=== PATIENT | female | born 1950 | race Caucasian/White ===

== ENCOUNTER 2019-08-12 20:19 | Inpatient (IN) ==
[2019-08-12] MEDS ORDERED: IPRATROPIUM/ALBUTEROL 3 ML AMPUL.NEB NEB ONE ×2 (20:25→20:40)
--- NOTE | 2019-08-12 20:41 | Emergency Department Note ---
SOB HPI - General Chief Complaint: Shortness of Breath/Dyspnea Stated Complaint: Short of breath x 2 hours Time Seen by Provider: 08/12/19 20:30 Source: patient Mode of arrival: ambulatory - History of Present Illness Presents to ER with worsening shortness of breath; has recently been seen for similar. Has been using inhalers. Additional history has been misplaced and not recalled. Has been on prednisone recently I believe. REVIEW OF SYSTEMS: Additional history - lost, and not recalled. As best I can remember there were no major other symptoms including chest pain or palpitations, Nausea or vomiting or diarrhea or constipation, dysuria, back pain, swelling, etc. - Related Data Home Medications Medication Instructions Recorded Confirmed Aspirin [Lo-Dose Aspirin EC] 81 mg PO Q48 08/12/19 08/13/19 Ibuprofen [Advil] 200 mg PO ONCE PRN 08/12/19 08/13/19 Losartan [Cozaar] 100 mg PO DAILY 08/12/19 08/13/19 Raloxifene HCl [Evista] 60 mg PO DAILY 08/12/19 08/13/19 Tiotropium [place] [Spiriva] 18 mcg INH DAILY 08/12/19 08/13/19 albuterol sulfate 90 mcg/actuation See Rx Instructions INHALATION 08/18/19 08/18/19 aerosol inhaler .COMPLEX PRN cholecalciferol (vitamin D3) 400 400 unit PO QDAY 08/18/19 unit capsule multivitamin See Rx Instructions PO QDAY tab 08/18/19 08/18/19 Previous Rx's Medication Instructions Recorded Inhaler,Assist Device,Med Mask 1 each MC 3-4XD #1 spacer 07/25/19 [Aerochamber Plus Flow-Vu] guaiFENesin/CODEINE [Robitussin AC] 10 ml PO Q4HP PRN #120 ml 08/12/19 Levofloxacin [Levaquin] 750 mg PO DAILY #5 tab 08/14/19 predniSONE [Deltasone] 40 mg PO DAILY #10 tab 08/14/19 Allergies Allergy/AdvReac Type Severity Reaction Status Date / Time No Known Drug Allergies Allergy Unverified 07/25/19 20:27 Past Medical History - Past Medical History REPLACED BY [facility] Narrative: Medical History (Last Updated 08/18/19 @ 13:30 by Fabiola Templeton) Ankle fracture, left (Chronic) Ankle fracture, right (Chronic) Metatarsal stress fracture (Chronic) Dyspnea (Chronic) Cough (Chronic) Osteopenia (Chronic) Arthritis (Chronic) Hip pain, bilateral (Chronic) Lumbar radiculopathy, right (Chronic) intermediate designer (current) use of aspirin (Chronic) COPD (chronic obstructive pulmonary disease) (Chronic) Acute exacerbation of chronic obstructive airways disease (Chronic) Hypertension, essential (Chronic) Past Surgical History (Last Updated 08/18/19 @ 13:30 by Fabiola Templeton) History of D&C (Chronic) History of bunionectomy (Chronic ~2001) History of oral surgery (Chronic ~2008) History of tonsillectomy and adenoidectomy (Chronic) History of tubal ligation (Chronic) Family History (Last Updated 08/18/19 @ 13:16 by Fabiola Templeton) Mother Smoker Regular alcohol consumption Esophageal cancer Heart disease Father Smoker Lung cancer Brother Gout Daughter Severe allergy Grandfather Lung cancer Family/Other Lung cancer Breast cancer Unknown Asthma Heart disease Medical history: Reports: COPD Surgical history ED: Reports: non-contributory - Social History smoking status: Former smoker Alcohol use: Reports: Rarely Drug use: Reports: none Physical Exam Below exam is best I am able to document, some based on assumptions as documentation (handwritten) has been misplaced and this is being completed several days later. Limitations: no limitations General appearance: alert, in no apparent distress Head: atraumatic, normocephalic Eye: Present: EOMI ENT: Present: normal oropharynx, mucous membranes moist Neck: Present: trachea midline. Absent: lymphadenopathy, thyromegaly Respiratory: Present: wheezes (polyphonic walker expiratory in muyltiple lung syed.), other (requiring oxygen to maintain). Absent: stridor, accessory muscle use, prolonged expiratory phase Cardiovascular: Present: regular rate, normal rhythm. Absent: systolic murmur, diastolic murmur Abdominal: Present: soft ( ). Absent: distention, tenderness, guarding, rebound, rigidity, organomegaly, mass Extremities: Absent: pedal edema, pretibial edema, calf tenderness Psychiatric: Present: normal affect, normal mood Skin: Present: warm, dry Course Vital Signs Temperature 97.3 F 08/12/19 20:20 Pulse Rate 119 H 08/12/19 20:20 Respiratory Rate 28 H 08/12/19 20:20 Blood Pressure 208/115 08/12/19 20:20 Pulse Oximetry (%) 85 L 08/12/19 20:20 Temperature 97.5 F 08/14/19 10:00 Pulse Rate 110 H 08/14/19 10:00 Respiratory Rate 18 08/14/19 10:00 Blood Pressure 158/73 08/14/19 10:00 Pulse Oximetry (%) 93 08/14/19 10:00 Shortness of Breath/Dyspnea - MDM Narrative Medical decision making narrative: COPD exacerbation type of presentation, failing outpt therapy. Will give additional duoneb. 9:05 PM - after second DuoNeb she still is quite wheezy and multiple lung syed. We will go with 10 mg heart neb. After heart nebulization still wheezy significantly and required oxygen to maintain. For this reason I spoke with hospitalist, Dr. Zapien, who kindly accepts this patient's care. - Lab Data Lab results reviewed: Yes I reviewed the patient's lab results. Result diagrams: 08/14/19 03:56 08/14/19 03:56 Lab Results 08/12/19 08/12/19 08/12/19 Range/Units 20:53 20:54 20:54 WBC 8.7 (4.5-11.0) K/mcL RBC 4.31 (4.00-5.20) M/mcL Hgb 14.2 (12.0-15.0) g/dL Hct 42.7 (36.0-48.0) % MCV 99.0 (80.0-100.0) fL MCH 33.0 (26.0-34.0) pg MCHC 33.3 (31.0-36.0) g/dL RDW 12.9 (11.5-14.5) % Plt Count 304 (140-440) K/mcL MPV 7.6 (7.4-10.4) fL Gran % 49.8 (38.0-78.0) % Lymph % (Auto) 24.1 (15.5-49.0) % [place] % (Auto) 12.2 H (1.0-12.0) % Eos % (Auto) 12.9 H (0.0-7.0) % Baso % (Auto) 1.0 (0.0-2.0) % Gran # 4.3 (1.8-8.0) K/mcL Lymph # (Auto) 2.1 (1.5-4.8) K/mcL [place] # (Auto) 1.1 H (0.1-0.9) K/mcL Eos # (Auto) 1.1 H (0.0-0.7) K/mcL Baso # (Auto) 0.1 (0.0-0.3) K/mcL Sodium 137 (133-145) mmol/L Potassium 4.2 (3.3-5.1) mmol/L Chloride 97 (96-108) mmol/L Carbon Dioxide 26 (22-30) mmol/L Anion Gap 14.0 (8-16) BUN 11 (8-23) mg/dl Creatinine 0.8 (0.6-1.1) mg/dl GFR Calculation 76 Glucose 116 H (70-105) mg/dL Calcium 9.4 (8.6-10.4) mg/dl Total Bilirubin 0.3 (0.0-1.0) mg/dL AST 23 (0-37) U/l ALT 18 (0-40) U/l Alkaline Phosphatase 53 (39-117) U/L C-Reactive Protein < 0.3 (0.0-0.8) mg/dl Total Protein 7.0 (5.9-8.4) gm/dL Albumin 4.5 (3.2-5.2) gm/dL Globulin 2.5 (2.2-3.7) gm/dL Albumin/Globulin Ratio 1.8 (1.0-2.3) Procalcitonin < 0.05 (<0.10) ng/mL - Radiology Data Radiology results reviewed: Yes I reviewed the patient's radiology results. Read as negative by creative perfumer. Disposition Pt seen by SURG TECH/PA only: No Clinical Impression: COPD exacerbation Disposition: Xfer As Outpt/Obs ([facility]) Condition: Fair
[2019-08-12] MEDS ORDERED: methylPREDNISolone SOD SUCC 125 MG/2 ML VIAL IV ONE (20:42)
[2019-08-12] MEDS ORDERED: ALBUTEROL SULFATE 5 MG/ML NEB SOLUTION BOTTLE NEB ONE (21:04)
[2019-08-12 21:18] LABS: Basophils # (Auto) 0.1 K/mcL (0.0-0.3); Eosinophils # (Auto) 1.1 K/mcL (0.0-0.7); Eosinophils % (Auto) 12.9 % (0.0-7.0); Granulocytes % (Auto) 49.8 % (38.0-78.0); Hematocrit 42.7 % (36.0-48.0); Hemoglobin 14.2 g/dL (12.0-15.0); Lymphocytes # (Auto) 2.1 K/mcL (1.5-4.8); Lymphocytes % (Auto) 24.1 % (15.5-49.0); Mean Corpuscular HGB Conc 33.3 g/dL (31.0-36.0); Mean Platelet Volume 7.6 fL (7.4-10.4); Monocytes # (Auto) 1.1 K/mcL (0.1-0.9); Monocytes % (Auto) 12.2 % (1.0-12.0); Platelet Count 304 K/mcL (140-440); RBC 4.31 M/mcL (4.00-5.20); Red Cell Distribution Width 12.9 % (11.5-14.5); WBC 8.7 K/mcL (4.5-11.0)
[2019-08-12 21:38] LABS: ALT/SGPT 18 U/l (0-40); AST/SGOT 23 U/l (0-37); Albumin 4.5 gm/dL (3.2-5.2); Albumin/Globulin Ratio 1.8 (1.0-2.3); Alkaline Phosphatase 53 U/L (39-117); Bilirubin,Total 0.3 mg/dL (0.0-1.0); Blood Urea Nitrogen 11 mg/dl (8-23); C-Reactive Protein < 0.3 mg/dl (0.0-0.8); Calcium 9.4 mg/dl (8.6-10.4); Carbon Dioxide 26 mmol/L (22-30); Chloride 97 mmol/L (96-108); Globulin 2.5 gm/dL (2.2-3.7); Glomerular Filtration Rate 76; Glucose 116 mg/dL (70-105)
[2019-08-12] MEDS ORDERED: IPRATROPIUM/ALBUTEROL 3 ML AMPUL.NEB NEB PRN (23:04)
[2019-08-13] MEDS: methylPREDNISolone SOD SUCC 125 MG/2 ML VIAL IV SCH ×4 (00:49→17:42)
--- NOTE | 2019-08-13 07:24 | Internal Med History&Physical ---
Medical - H&P: HPI Patient information: Note initiated : 08/13/19 at 7:23 am Service Date, if different from initiated Date: [] Patient: Yuki Harper a 69 y/o F admitted on 08/12/19 for Short of breath x 2 hours. Chief Complaint: [] Chief complaint: Shortness of breath History of present illness: Ms. Harper is a 69 year old F with a history of over 50 pack year history of smoking and and was diagnosed COPD 12 years ago. She has not had intermittent flares and has not been on oxygen. She continued to smoke until 2 months ago. She recently had an exacerbation around July 25 and was discharged on prednisone taper along with bronchodilators. Following that episode patient was scheduled for outpatient PFT and pulmonology follow-up next week however she now presents the second time with worsening shortness of breath,, spells of cough and remarkable increase in effort tolerance limiting her functionality. She denies sick contacts, increased weight gain, recent allergies or medication changes. She is attempted to use bronchodilators/inhalers multiple times without improvement. She now presents the second time to the ER. Initial work-up was consistent with COPD flare. She was tachycardic and tachypneic along with sats mid 70s improved with oxygen and thereafter responded well to bronchodilators. However in light of failed outpatient treatment hospitalist service was consulted for evaluation for management of COPD exacerbation. At the time of evaluation patient is alert and oriented. She was able to answer most of the questions. Endorsed to history as above. Review of systems A 10 point review system was performed and is negative except was discussed above Medical - H&P: PMH Medical history: Over 50 pack history of smoking Hypertension COPD Pertinent family history: Father/ grandfather lung cancer Grandmother esophageal cancer Medical - H&P: Meds Home Medications Medication Instructions Recorded Confirmed Type Inhaler,Assist Device,Med Mask 1 each MC 3-4XD #1 spacer 07/25/19 08/13/19 Rx [Aerochamber Plus Flow-Vu] Aspirin [Lo-Dose Aspirin EC] 81 mg PO Q48 08/12/19 08/13/19 History Ibuprofen [Advil] 200 mg PO ONCE PRN 08/12/19 08/13/19 History Losartan [Cozaar] 100 mg PO ONCE 08/12/19 08/13/19 History Raloxifene HCl [Evista] 60 mg PO DAILY 08/12/19 08/13/19 History Tiotropium [place] [Spiriva] 18 mcg INH DAILY 08/12/19 08/13/19 History guaiFENesin/CODEINE [Robitussin AC] 10 ml PO Q4HP PRN #120 ml 08/12/19 08/13/19 Rx Allergies Allergy/AdvReac Type Severity Reaction Status Date / Time No Known Drug Allergies Allergy Unverified 07/25/19 20:27 Medical - H&P: Exam - Constitutional Vitals: Temp Pulse Resp BP Pulse Ox 97.7 F 101 H 20 140/85 94 08/13/19 03:21 08/13/19 03:21 08/13/19 03:21 08/13/19 03:21 08/13/19 03:21 General appearance: moderate distress (Shortness of breath) Exam: thin individual anxious Head normocephalic Oral cavity dry No ear nose discharge Neck no lymphadenopathy Eye movement symmetrical S1-S2 tachycardia sinus regular ESM grade 1 Diminished breath sounds with hyperventilation and expiratory rhonchi Abdomen soft nontender Lower extremity no cyanosis clubbing Skin no suspicious lesion Joint normal range of motion Psych alert cooperative but anxious Neuro nonfocal Medical - H&P: Reslt - Labs CBC & Chem 7: 08/12/19 20:54 08/12/19 20:53 Labs: Short CBC 08/12/19 Range/Units 20:54 WBC 8.7 (4.5-11.0) K/mcL Hgb 14.2 (12.0-15.0) g/dL Hct 42.7 (36.0-48.0) % Plt Count 304 (140-440) K/mcL [facility] 08/12/19 20:53 Sodium 137 Potassium 4.2 Chloride 97 Carbon Dioxide 26 BUN 11 Creatinine 0.8 Glucose 116 H Calcium 9.4 Liver Function 08/12/19 Range/Units 20:53 Total Bilirubin 0.3 (0.0-1.0) mg/dL AST 23 (0-37) U/l ALT 18 (0-40) U/l Alkaline Phosphatase 53 (39-117) U/L Albumin 4.5 (3.2-5.2) gm/dL Medical - H&P: A/P (1) Acute exacerbation of chronic obstructive airways disease Current visit: No Status: Acute * Acute exacerbation of COPD secondary to acute bronchitis with increasing dyspnea/purulence. Continue supplemental oxygen/bronchodilators/IV steroids. Continue pulmonary toilet. Start Levaquin. * History of hypertension continue home dose losartan * Dyspnea secondary to COPD-pulmonary toilet current bronchodilators * Full code * Prophylaxis heparin Plan * COPD management per guidelines * Tobacco smoking cessation counseling * Outpatient follow-up with pulmonology/PFTs in 2 weeks * Flu pneumonia vaccination * Pre-existing well condition management on home meds
[2019-08-13] MEDS ORDERED: ACETAMINOPHEN 325 MG TABLET PO PRN (07:28)
[2019-08-13] MEDS ORDERED: POTASSIUM CHLORIDE 20 MEQ PACKET PO PRN (07:28)
[2019-08-13] MEDS ORDERED: ACETAMINOPHEN 650 MG/65 ML BOTTLE IV PRN (07:28)
[2019-08-13] MEDS ORDERED: ONDANSETRON 4 MG/2 ML VIAL IV PRN (07:28)
[2019-08-13] MEDS ORDERED: MAGNESIUM SULFATE 2 GM/50 ML BAG IV PRN (07:28)
[2019-08-13] MEDS ORDERED: MELATONIN 3 MG TABLET PO PRN (07:28)
[2019-08-13] MEDS ORDERED: IBUPROFEN 200 MG TABLET PO PRN (08:10)
[2019-08-13] MEDS: LOSARTAN 50 MG TABLET PO SCH (08:22)
--- NOTE | 2019-08-13 08:31 | Internal Med Progress Note ---
Medical - PN: Subj Patient information: Note initiated : 08/13/19 at 8:28 am Service Date, if different from initiated Date: [] Patient: Yuki Harper a 69 y/o F admitted on 08/12/19 for Short of breath x 2 hours. Chief Complaint: [] Interval history: Ms. Harper is a 69 year old F with a history of over 50 pack year history of smoking and and was diagnosed COPD 12 years ago. She has not had intermittent flares and has not been on oxygen. She continued to smoke until 2 months ago. She recently had an exacerbation around July 25 and was discharged on prednisone taper along with bronchodilators. Following that episode patient was scheduled for outpatient PFT and pulmonology follow-up next week however she now presents the second time with worsening shortness of breath,, spells of cough and remarkable increase in effort tolerance limiting her functionality. She denies sick contacts, increased weight gain, recent allergies or medication changes. She is attempted to use bronchodilators/inhalers multiple times without improvement. She now presents the second time to the ER. Initial work-up was consistent with COPD flare. She was tachycardic and tachypneic along with sats mid 70s improved with oxygen and thereafter responded well to bronchodilators. However in light of failed outpatient treatment hospitalist service was consulted for evaluation for management of COPD exacerbation. At the time of evaluation patient is alert and oriented. She was able to answer most of the questions. Endorsed to history as above. 08/13-patient doing well. Improved work of breathing. On IV stero ids/bronchodilators. Start antibiotic coverage. Continues to expectorate yellowish-green sputum. Discussed treatment plan. Anticipate discharge in 24 hours on outpatient antibiotics/steroids. Schedule outpatient pulmonology follow-up on discharge along with PFTs. - Constitutional Vitals: Vital Signs Temp Pulse Resp BP Pulse Ox 98.1 F 105 H 20 162/91 94 08/13/19 07:45 08/13/19 07:45 08/13/19 07:45 08/13/19 07:45 08/13/19 07:45 Period Temp Pulse Resp BP Sys/Reilly Pulse Ox Last 24 Hr 97.3 F-98.1 F 95-132 17-30 136-208/68-145 85-100 Intake and Output 08/12/19 08/13/19 08/13/19 21:59 05:59 13:59 Intake Total 0 Output Total 350 250 Balance -350 -250 Weight 115 lb 114 lb 12.8 oz Intake & Output: Intake & Output 08/12/19 08/13/19 08/13/19 21:59 05:59 13:59 Intake Total 0 Output Total 350 250 Balance -350 -250 Weight 115 lb 114 lb 12.8 oz Intake: Oral 0 Output: Void Amount 350 250 Other: Urine Appearance Clear Clear Urine Color Bright Yellow Bright Yellow General appearance: no acute distress Exam: Alert oriented Improved work of breathing Minimal rhonchi Persistent tachycardia Medical - PN: Obj Da - Labs CBC & Chem 7: 08/12/19 20:54 08/12/19 20:53 Labs: Abnormal Lab Results 08/12/19 08/12/19 20:54 20:53 [place] % (Auto) 12.2 H Eos % (Auto) 12.9 H [place] # (Auto) 1.1 H Eos # (Auto) 1.1 H Glucose 116 H Meds: Medications Acetaminophen (Tylenol) 650 mg PO Q4-6HP PRN; Protocol PRN Reason: Per Pain Protocol/Fever > 101 Albuterol/Ipratropium (Duoneb) 3 ml NEB Q4HP PRN PRN Reason: SOB, wheeze, tight Albuterol/Ipratropium (Duoneb) 3 ml NEB Q4HRT [facility] Aspirin (Aspirin) 81 mg PO Q48 [facility] Budesonide (Pulmicort) 0.5 mg NEB Q12 [facility] Cyanocobalamin (Vitamin B-12) 1,000 mcg PO BID [facility] Stop: 08/17/19 21:01 Docusate Sodium (Colace) 100 mg PO BID [facility] Folic Acid (Folic Acid) 1 mg PO DAILY [facility] Guaifenesin/Codeine Phosphate (Robitussin Ac) 10 ml PO Q4HP PRN PRN Reason: Cough Heparin Sodium (Porcine) (Heparin) 5,000 unit SQ Q12 [facility] Acetaminophen (Ofirmev) 650 mg in 65 mls @ 130 mls/hr IV Q6HP PRN; Protocol PRN Reason: Per Pain Protocol/Fever > 101 Magnesium Sulfate (Magnesium Sulfate) 2 gm in 50 mls @ 50 mls/hr IV UD PRN PRN Reason: MG = or < 1.7 Ibuprofen (Motrin) 200 mg PO Q6HP PRN PRN Reason: Pain Iron Carb/Multivit/[place]/Folic Acid (Multivitamin W/Minerals) 1 tab PO DAILY [facility] Levofloxacin (Levaquin) 500 mg PO DAILY [facility]; Protocol Losartan Potassium (Cozaar) 100 mg PO DAILY [facility] Last Admin: 08/13/19 08:22 Dose: 100 mg Documented by: Melatonin (Melatonin 3mg Tablet) 3 mg PO HSP PRN PRN Reason: Insomnia Methylprednisolone Sodium Succinate (Solu-Medrol) 62.5 mg IV Q6 [facility] Last Admin: 08/13/19 05:39 Dose: 62.5 mg Documented by: Ondansetron HCl (Zofran) 4 mg IV Q4-6HP PRN; Protocol PRN Reason: Nausea And Vomiting Potassium Chloride (Klor-Con) 40 meq PO DAILYP PRN PRN Reason: K+ < 3.5 Raloxifene HCl (Evista) 60 mg PO DAILY [facility] Senna/Docusate Sodium (Senna Plus Tablet) 1 tab PO HS [facility] Sodium Chloride (Saline Flush) 10 ml IV Q8 [facility] Thiamine HCl (Vitamin B1) 100 mg PO DAILY [facility] Tiotropium [place] (Spiriva) 18 mcg INH DAILY [facility] Medical - PN: A/P - Time Spent With Patient Total time spent is greater than 50% in coordination of care (as documented) at patient's floor/unit and/or counseling patient: 25 - 35 minutes (1) Acute exacerbation of chronic obstructive airways disease Status: Acute Assessment and plan: * Acute exacerbation of COPD secondary to acute bronchitis . Clinically improved on steroids/bronchodilators/supplemental oxygen. Continue pulmonary toilet. Continue antibiotic coverage for 5 days * History of hypertension continue losartan * Dyspnea secondary to COPD-supplemental O2/pulmonary toilet * Full code * Prophylaxis heparin Plan * Transition to oral steroids in 24 hours * Antibiotic coverage * Maintain smoking cessation * Schedule outpatient follow-up with pulmonology/PFTs in 2 weeks * Vaccination * Pre-existing well condition management on home meds Current Visit: No
[2019-08-13] MEDS ORDERED: ASPIRIN 81 MG TAB.CHEW PO SCH (09:00)
[2019-08-13] MEDS: RALOXIFENE HCL 60 MG TABLET PO SCH (09:45)
[2019-08-13] MEDS: CYANOCOBALAMIN (VITAMIN B-12) 500 MCG TABLET PO SCH ×2 (09:46→20:45)
[2019-08-13] MEDS: LEVOFLOXACIN 500 MG TABLET PO SCH (09:46)
[2019-08-13] MEDS: FOLIC ACID 1 MG TABLET PO SCH (09:47)
[2019-08-13] MEDS: TIOTROPIUM BROMIDE 18 MCG INHALANT INH SCH (09:47)
[2019-08-13] MEDS: MULTIVIT,THER IRON,CA,FA & MIN 1 TABLET PO SCH (09:47)
[2019-08-13] MEDS: THIAMINE 100 MG TABLET PO SCH (09:47)
[2019-08-13] MEDS: HEPARIN 5,000 UNIT/ML VIAL SQ SCH ×2 (09:47→20:45)
[2019-08-13] MEDS: DOCUSATE SODIUM 100 MG CAPSULE PO SCH ×2 (09:48→20:46)
[2019-08-13] MEDS: BUDESONIDE 0.5 MG/2 ML AMPUL.NEB NEB SCH ×3 (10:23→20:57)
[2019-08-13] MEDS: IPRATROPIUM/ALBUTEROL 3 ML AMPUL.NEB NEB SCH ×4 (10:23→22:35)
[2019-08-13] MEDS: 0.9 % SODIUM CHLORIDE 10 ML SYRINGE IV SCH ×2 (11:59→20:46)
[2019-08-13] MEDS: guaiFENesin/CODEINE 10 ML UDC PO PRN ×2 (13:21→22:07)
[2019-08-13] MEDS ORDERED: SENNOSIDES/DOCUSATE SODIUM 1 TAB TABLET PO SCH (21:00)
[2019-08-14] MEDS: IPRATROPIUM/ALBUTEROL 3 ML AMPUL.NEB NEB SCH ×2 (03:10→06:58)
--- NOTE | 2019-08-14 05:19 | Discharge Summary ---
Medical - DS: Prov Patient information: Note initiated : 08/14/19 at 5:16 am Service Date, if different from initiated Date: [] Patient: Yuki Harper 69 y/o F admitted on 08/12/19 for Short of breath x 2 hours. Chief Complaint: [] Date of admission: 08/12/19 23:48 Discharge date: 08/14/19 Primary care physician: Marilee Puckett Consults: 08/12/19 Consult to Physician [CONS] Stat Comment: Consulting Provider: Jose Manuel Brady Reason For Exam: Physician to Consult Medical - DS: Meds - Discharge Medications Prescriptions: predniSONE [Deltasone] 40 mg PO DAILY #10 tab Transmission Status: Received by [id number] Levofloxacin [Levaquin] 750 mg PO DAILY #5 tab Transmission Status: Received by [facility] Active and Home Medications: Home Medications Inhaler,Assist Device,Med Mask [Aerochamber Plus Flow-Vu] 1 each 3-4XD #1 spacer 07/25/19 [Rx Confirmed 08/13/19 Last Taken 08/12/19] Aspirin [Lo-Dose Aspirin EC] 81 mg PO Q48 08/12/19 [History Confirmed 08/13/19 Last Taken 08/12/19] Ibuprofen [Advil] 200 mg PO ONCE PRN 08/12/19 [History Confirmed 08/13/19 Last Taken Unknown] Losartan [Cozaar] 100 mg PO DAILY 08/12/19 [History Confirmed 08/13/19 Last Taken 08/12/19] Raloxifene HCl [Evista] 60 mg PO DAILY 08/12/19 [History Confirmed 08/13/19 Last Taken 08/12/19] Tiotropium Arrington [Spiriva] 18 mcg INH DAILY 08/12/19 [History Confirmed 08/13/19 Last Taken 08/12/19] guaiFENesin/CODEINE [Robitussin AC] 10 ml PO Q4HP PRN #120 ml 08/12/19 [Rx Confirmed 08/13/19 Last Taken 08/12/19] Levofloxacin [Levaquin] 750 mg PO DAILY #5 tab 08/14/19 [Rx Last Taken Unknown] predniSONE [Deltasone] 40 mg PO DAILY #10 tab 08/14/19 [Rx Last Taken Unknown] Medical - DS: Hosp Hospital Course: Discharge diagnosis * Acute exacerbation of COPD secondary to acute bronchitis . Clinically improved on steroids/bronchodilators, now off oxygen. Sats over 90%. Continue continue antibiotics/steroids for additional 5 days. Follow-up with for PFT as outpatient followed by pulmonology follow-up * History of hypertension continue home dose losartan * Dyspnea secondary to COPD exacerbation-clinically improving now able to talk in full sentences. On room air. Schedule outpatient pulmonology follow- up/PFTs. * Tobacco dependence-patient quit 2 months ago. Continue abstinence. Brief hospital course Ms. Harper is a 69 year old F with a history of over 50 pack year history of smoking and and was diagnosed COPD 12 years ago. She has not had intermittent flares and has not been on oxygen. She continued to smoke until 2 months ago. She recently had an exacerbation around July 25 and was discharged on prednisone taper along with bronchodilators. Following that episode patient was scheduled for outpatient PFT and pulmonology follow-up next week however she now presents the second time with worsening shortness of breath,, spells of cough and remarkable increase in effort tolerance limiting her functionality. She denies sick contacts, increased weight gain, recent allergies or medication changes. She is attempted to use bronchodilators/inhalers multiple times without improvement. She now presents the second time to the ER. Initial work-up was consistent with COPD flare. She was tachycardic and tachypneic along with sats mid 70s improved with oxygen and thereafter responded well to bronchodilators. However in light of failed outpatient treatment hospitalist service was consulted for evaluation for management of COPD exacerbation. At the time of evaluation patient is alert and oriented. She was able to answer most of the questions. Endorsed to history as above. 08/13-patient doing well. Improved work of breathing. On IV steroids/bron chodilators. Start antibiotic coverage. Continues to expectorate yellowish- green sputum. Discussed treatment plan. Anticipate discharge in 24 hours on outpatient antibiotics/steroids. Schedule outpatient pulmonology follow-up on discharge along with PFTs. 08/14-patient doing better. Able to talk in full sentences. Cough improved. Hypoxia resolved. Discharging with advised to follow-up with pulmonology/PFTs as outpatient. Discharge diagnosis: . - Time Spent with Patient Total time spent providing and/or coordinating discharge services: Greater than 30 minutes Medical - DS: Exam - Constitutional Vitals: Vital Signs Temp Pulse Pulse Resp BP Pulse Ox 08/14/19 03:14 108 H 20 08/14/19 03:10 97.6 F 108 H 20 128/72 92 08/14/19 00:00 99.0 F 109 H 20 110/59 92 08/13/19 22:36 115 H 18 08/13/19 19:53 97.7 F 113 H 24 H 134/69 93 08/13/19 18:34 123 H 20 88 L 08/13/19 18:26 108 H 20 08/13/19 16:00 98.4 F 106 H 20 150/81 94 08/13/19 12:00 98.4 F 101 H 20 157/83 95 08/13/19 10:24 18 94 08/13/19 07:45 98.1 F 105 H 20 162/91 94 Intake and Output 08/13/19 08/13/19 08/14/19 13:59 21:59 05:59 Intake Total 1999 340 400 Output Total 053 132 3962 Balance 1250 -460 -900 Intake: Oral 1999 340 400 Output: Void Amount [phone] Other: Meal Breakfast Dinner Percent of Meal Consumed 100% 100% Feeding Ability Independent Urine Appearance Clear Clear Urine Color Bright Yellow Pale Bright Yellow # Voids 1 Weight 114 lb 12.8 oz 114 lb 4.8 oz Patient Weight 08/14/19 05:59 Weight 114 lb 4.8 oz Medical - DS: Data Labs on day of discharge: Labs from last 24 hours 08/14/19 08/14/19 03:56 03:56 WBC Pending RBC Pending Hgb Pending Hct Pending MCV Pending MCH Pending MCHC Pending RDW Pending Plt Count Pending MPV Pending Total Counted Pending Band Neutrophils % Not Reportable Platelet Estimate Pending RBC Morphology Pending Sodium Pending Potassium Pending Chloride Pending Carbon Dioxide Pending Anion Gap Pending BUN Pending Creatinine Pending GFR Calculation Pending Glucose Pending Uric Acid Pending Calcium Pending Phosphorus Pending Magnesium Pending Total Bilirubin Pending Direct Bilirubin Pending GGT Pending AST Pending ALT Pending Alkaline Phosphatase Pending Lactate Dehydrogenase Pending Total Protein Pending Albumin Pending Globulin Pending Albumin/Globulin Ratio Pending Triglycerides Pending Medical - DS: A/P - Patient/Caregiver Discharge Instructions Activity: increase activity as tolerated Diet: Regular Diet Additional Instructions: Continue prednisone and oral Levaquin for additional 5 days. Follow pulmonology in 2 weeks. PFT prior to pulmonology visit. Increase activity as tolerated. May resume regular diet as tolerated. Prescriptions: predniSONE [Deltasone] 40 mg PO DAILY #10 tab Transmission Status: Received by [facility] Levofloxacin [Levaquin] 750 mg PO DAILY #5 tab Transmission Status: Received by [facility] - Problem Maintenance (1) Acute exacerbation of chronic obstructive airways disease Status: Acute - Follow up Plan Follow up with: Dmitry Hall MD [Physician] - 08/20/19 3:00 pm (Keep this appointment. Your PFT has been rescheduled to , check in at 2:15 pm for a 2:30 pm appointment.) Marilee Puckett MD [Primary Care Provider] - Disposition: Home, Self-Care Care Plan Goals: This discharge packet is provided to you to help keep you informed about your care. We want to ensure you get everything you need when you go home. You will also be receiving a call from us in a few days to follow up with you and see how you are doing since your discharge. This gives us a chance to listen to any concerns you maybe experiencing since you were discharged or any additional needs you may have, as well as providing us feedback on your care experience. We strive to always provide excellent care and thank you for your feedback and for choosing [facility]. Prognosis: Fair Rehab Potential: Fair I certify that the patient requires SNF services: No Overall status at discharge: patient is progressing back to baseline
[2019-08-14 05:22] LABS: Hemoglobin 13.3 g/dL (12.0-15.0); Mean Cell Volume 99.2 fL (80.0-100.0); Mean Corpuscular HGB Conc 33.1 g/dL (31.0-36.0); Mean Platelet Volume 8.4 fL (7.4-10.4); Platelet Count 265 K/mcL (140-440); RBC 4.03 M/mcL (4.00-5.20); Red Cell Distribution Width 12.9 % (11.5-14.5); WBC 9.9 K/mcL (4.5-11.0)
[2019-08-14] MEDS: methylPREDNISolone SOD SUCC 125 MG/2 ML VIAL IV SCH ×2 (05:39)
[2019-08-14] MEDS: 0.9 % SODIUM CHLORIDE 10 ML SYRINGE IV SCH (05:39)
[2019-08-14 06:01] LABS: ALT/SGPT 17 U/l (0-40); AST/SGOT 22 U/l (0-37); Albumin 4.3 gm/dL (3.2-5.2); Albumin/Globulin Ratio 1.9 (1.0-2.3); Alkaline Phosphatase 44 U/L (39-117); Bilirubin,Direct < 0.2 mg/dL (0.0-0.3); Bilirubin,Total 0.3 mg/dL (0.0-1.0); Blood Urea Nitrogen 14 mg/dl (8-23); Calcium 9.2 mg/dl (8.6-10.4); Carbon Dioxide 23 mmol/L (22-30); Chloride 98 mmol/L (96-108); Globulin 2.3 gm/dL (2.2-3.7); Glomerular Filtration Rate 66; Glucose 198 mg/dL (70-105); Lactate Dehydrogenase 194 U/L (94-250); Phosphorous 3.8 mg/dL (2.7-4.5); Triglycerides 50 mg/dl (<150); Uric Acid 3.7 mg/dL (2.5-8.0)
[2019-08-14 06:45] LABS: Lymphocytes % 3 % (15-49); Monocytes % (Manual) 4 % (1-12); Platelet Estimate NORMAL (NORMAL); RBC Morphology NORMAL (NORMAL); Segmented Neutrophils % 93 % (38-78)
[2019-08-14] MEDS: BUDESONIDE 0.5 MG/2 ML AMPUL.NEB NEB SCH ×2 (06:59→07:37)
[2019-08-14] MEDS ORDERED: PNEUMOCOCCAL 23-VAL P-SAC VAC 0.5 ML SYRINGE IM ONE (08:00)
[2019-08-14] MEDS: DOCUSATE SODIUM 100 MG CAPSULE PO SCH (09:20)
[2019-08-14] MEDS: TIOTROPIUM BROMIDE 18 MCG INHALANT INH SCH (09:21)
[2019-08-14] MEDS: LEVOFLOXACIN 500 MG TABLET PO SCH (09:22)
[2019-08-14] MEDS: MULTIVIT,THER IRON,CA,FA & MIN 1 TABLET PO SCH (09:22)
[2019-08-14] MEDS: CYANOCOBALAMIN (VITAMIN B-12) 500 MCG TABLET PO SCH (09:23)
[2019-08-14] MEDS: THIAMINE 100 MG TABLET PO SCH (09:24)
[2019-08-14] MEDS: LOSARTAN 50 MG TABLET PO SCH (09:40)
[2019-08-14] MEDS: HEPARIN 5,000 UNIT/ML VIAL SQ SCH (09:40)
[2019-08-14] MEDS: FOLIC ACID 1 MG TABLET PO SCH (09:45)
[2019-08-14] MEDS: RALOXIFENE HCL 60 MG TABLET PO SCH (09:45)
== END 2019-08-14 10:30 | disposition home or self-care (01) | DRG 192 ==
LOC: ED 20:19 → MEDSUR 20:19 → OBSVTOIN 23:48 → MEDSUR 23:55
PROVIDERS: ADMIT Internal Medicine; ATTEND Internal Medicine